=== PATIENT | female | born 1970 | race Caucasian/White ===

== ENCOUNTER 2020-05-07 19:33 | Emergency (ER) | payer OTHER ==
[~2020-05-07] VITALS: Ht 160 cm; Wt 118.6 kg
[2020-05-07 19:45] VITALS: BP 144/68
[2020-05-07] MEDS ORDERED: LIDOCAINE/EPI/TETRACAINE TOPICAL GEL 3 ML. TP ONE (19:45)
--- NOTE | 2020-05-07 20:24 | PHYS DOC ---
Past History Past Medical History: A-Fib, Arthritis Past Surgical History: Alcohol Use: None Adult General Chief Complaint Chief Complaint: LACERATION/AVULSION HPI HPI Patient is an otherwise healthy 50-year-old female who presents with laceration to the proximal portion of the left third digit. States she was cutting an avocado earlier, slipped and cut her finger. States she cannot remember her last tetanus vaccination. Denies any other injuries. Review of Systems Review of Systems Review of systems otherwise unremarkable except noted in HPI. Current Medications Current Medications Current Medications Medications (Trade) Dose Ordered Sig/Connor Start Time Stop Time Status Last Admin Dose Admin Lidocaine/ Epinephrine (Let (Edsz-Htsvxjs-Dldps) Gel) 3 ml 1X ONCE 05/07/20 19:45 05/07/20 19:53 DC 05/07/20 19:57 3 ML Allergies Allergies Allergies Coded Allergies Type Severity Reaction Last Updated Verified morphine Allergy Unknown 05/07/20 Yes Physical Exam Physical Exam Constitutional: Well developed, well nourished, no acute distress, non-toxic appearance. [] Cardiovascular:Heart rate regular rhythm Skin: Warm, dry, no erythema, no rash. [] Extremities: No tenderness, no cyanosis, no clubbing, ROM intact, no edema. Approximately 2.5 cm linear laceration on the proximal left third digit. Neurovascular exam intact. Hemostasis achieved. Range of motion normal. [] Neurologic: Alert and oriented X 3, Psychologic: Affect normal, judgement normal, mood normal. [] Current Patient Data Vital Signs Vital Signs Date Time Temp Pulse Resp B/P (MAP) Pulse Ox O2 Delivery O2 Flow Rate FiO2 05/07/20 19:45 98.1 60 20 144/68 (93) 98 Room Air EKG EKG [] Radiology/Procedures Radiology/Procedures Indication: [] Finger laceration Procedure: The patient was placed in the appropriate position and anesthesia around the wound was anesthetized with L ET. The area was then lavaged with approximately 100 mL of sterile saline. The laceration was closed with 5-0 Prolene, 4 sutures. Total repaired wound length: 2.5 cm Other Items: [OTHER ITEMS] The patient tolerated the procedure well Complications: No complications Current Medications Medications (Trade) Dose Ordered Sig/Connor Route PRN Reason Start Time Stop Time Status Last Admin Dose Admin Lidocaine/ Epinephrine (Let (Uawx-Eomhveo-Eqkky) Gel) 3 ml 1X ONCE TP 1/18/21 19:45 05/07/20 19:53 DC 05/07/20 19:57 3 ML [] Heart Score Risk Factors: Risk Factors: DM, Current or recent (<one month) smoker, HTN, HLP, family history of CAD, obesity. Risk Scores: Risk Factors: DM, Current or recent (<one month) smoker, HTN, HLP, family history of CAD, obesity. Course & Med Decision Making Course & Med Decision Making Patient is a 50-year-old female who presents with finger laceration Vital signs not concerning. Physical exam noted above. LET placed for topical anesthesia. Anesthesia achieved. Wound lavaged with approximately 100 mL of sterile water. 4 sutures placed. Patient tolerated well. Advised to follow-up in approximately 7 days with primary care physician for wound check and suture removal. Advised to come back to the ED with any new or concerning symptoms or if unable to get into see primary care physician in approximately 7 days. Advised to come back to the ED with any new or concerning symptoms. Patient grateful, verbalized understanding and agreed with plan of discharge. [] Dragon Disclaimer Dragon Disclaimer This electronic medical record was generated, in whole or in part, using a voice recognition dictation system. Departure Departure: Disposition: 01 DC HOME SELF CARE/HOMELESS Condition: GOOD Referrals: PCP,UNKNOWN (PCP) ALONZO MEDEIROS MD May 07, 2020 20:24
[2020-05-07] MEDS ORDERED: DIPH,PERTUSS(ACELL),TET VAC/PF 0.5 ML SYRINGE. VAX IM ONE (20:30)
== END 2020-05-07 21:08 | disposition home or self-care (01) ==
LOC: ER 19:33
DX: S61.213A Laceration without foreign body of left middle finger without damage to nail, initial encounter (principal); M19.90 Unspecified osteoarthritis, unspecified site; I48.91 Unspecified atrial fibrillation; Z88.5 Allergy status to narcotic agent; W26.0XXA Contact with knife, initial encounter; Y93.89 Activity, other specified; Y92.89 Other specified places as the place of occurrence of the external cause; Y99.8 Other external cause status
CPT/HCPCS: 12001; 90471; 90715; 99283